=== PATIENT | male | born 1985 | race Caucasian/White ===

== ENCOUNTER 2019-02-06 19:42 | Emergency (ER) | payer MEDICAID, OTHER ==
[~2019-02-06] VITALS: Ht 175.2 cm; Wt 107.3 kg
--- NOTE | 2019-02-06 20:22 | ED Cough/URI ---
General Chief Complaint: Cough/Cold/Flu Symptoms Stated Complaint: SINUS INFECTION/FEVER Nursing Triage Note: Patient states that he has not been feeling well for approximately 1 month. Patient states that he has had intermittent fever, cough, congestion and nausea. Patient recently develped diarrhea in the last 24 hours. Patient states that he has been coughing up clear thick mucous. Nasal drainage has alternated between yellow and clear. Patient has also had intermittent joint pain. Sepsis Screen: Possible Severe Sepsis Risk Source: patient Exam Limitations: no limitations History of Present Illness Date Seen by Provider: Feb 06, 2019 Time Seen by Provider: 20:03 Initial Comments Patient presents ER by private conveyance with chief complaint of one month nasal congestion, sinus pressure pain and subjective fever starting last couple days. He's been using Vicks with minimal relief. He's loss since of smell and taste. He does not have a history of frequent sinus infections. Does smoke about half pack cigarettes per day but does not chew her DIP. He does not have a history of asthma or COPD. He's had an occasional nonproductive cough. He has not had any Tylenol or ibuprofen today. He is not using medications nor follow with a doctor for any reason. Allergies and Home Medications Allergies Coded Allergies: No Known Drug Allergies (Unverified , 02/06/19) Home Medications Amoxicillin/Potassium Clav 1 Each Tablet, 1 EACH PO BID Prescribed by: DUNCAN HUANG on 02/06/192022 Benzonatate 100 Mg Capsule, 100 MG PO Q6H PRN for COUGH Prescribed by: DUNCAN HUANG on 02/06/192022 Patient Home Medication List Home Medication List Reviewed: Yes Review of Systems Review of Systems Constitutional: chills; No diaphoresis; fever, malaise EENTM: No ear discharge, No ear pain Respiratory: cough; No phlegm, No short of breath, No wheezing Cardiovascular: No chest pain, No edema Gastrointestinal: No abdominal pain, No constipation, No diarrhea, No nausea, No vomiting Genitourinary: No discharge, No dysuria Past Ngavluc-Lqmcth-Ohcmwn Hx Patient Social History Alcohol Use: Regular Use Alcohol Beverage of Choice: Whiskey Recreational Drug Use: No Smoking Status: Current Everyday Smoker Type Used: Cigarettes Recent Foreign Travel: No Contact w/Someone Who Travel: No Recent Infectious Disease Expo: No Physical Abuse: No Sexual Abuse: No Mistreated: No Fear: No Seasonal Allergies Seasonal Allergies: No Past Medical History Surgeries: Yes (Dental) Respiratory: No Cardiac: No Neurological: No Genitourinary: No Gastrointestinal: No Musculoskeletal: No Endocrine: No HEENT: No Cancer: No Psychosocial: No Integumentary: No Physical Exam Vital Signs - First Documented 02/06/19 02/06/19 19:49 20:02 Temp 37.2 Pulse 107 Resp 18 B/P (MAP) 145/83 (103) Pulse Ox 97 O2 Delivery Room Air Capillary Refill : Less Than 3 Seconds Height: '" Weight: lbs. oz. kg; 34.00 BMI Method: General Appearance: WD/WN, mild distress Eyes: Bilateral Eye Normal Inspection, Bilateral Eye PERRL, Bilateral Eye EOMI HEENT: PERRL/EOMI; No TMs normal (bilateral mucoid effusion without erythema, injection, bulging or loss of tympanic membrane landmarks); pharynx normal, other (maxillary sinus bilateral tenderness to palpation. Nasal mucosa congestion mild erythema with small amount of purulent discharge) Neck: non-tender, full range of motion, supple, normal inspection, lymphadenopathy (R), lymphadenopathy (L) (bilateral anterior cervical lymphadenopathy, shoddy less than one centimeters each) Respiratory: lungs clear, normal breath sounds, no respiratory distress, no accessory muscle use Cardiovascular: normal peripheral pulses, regular rate, rhythm Neurologic/Psychiatric: alert, normal mood/affect, oriented x 3 Progress/Results/Core Measures Suspected Sepsis Recent Fever Within 48 Hours: Yes Infection Criteria Present: Suspected New Infection New/Unexplained Altered Menta: No Sepsis Screen: Possible Severe Sepsis Risk SIRS Temperature: Pulse: 107 Respiratory Rate: 18 Blood Pressure 145 /83 Mean: 103 Results/Orders Micro Results Microbiology 02/06/19 Influenza Types A,B Antigen (AHL) - Final, Complete My Orders Orders - DUNCAN HUANG Influenza A And B Antigens (02/06/19 19:58) Vital Signs/I&O 02/06/19 02/06/19 19:49 20:02 Temp 37.2 Pulse 107 Resp 18 B/P (MAP) 145/83 (103) Pulse Ox 97 O2 Delivery Room Air Room Air Capillary Refill : Less Than 3 Seconds Blood Pressure Mean: 103 POS Progress Note : Time: 20:19 Progress Note Influenza swab obtained. He does have tenderness to palpation over the maxillary sinuses. Plan to put him on Augmentin for 10 days and encouraged appropriate hygiene. Departure Impression Primary Impression: Maxillary sinusitis, acute Qualified Codes: J01.00 - Acute maxillary sinusitis, unspecified Additional Impression: Mucoid otitis media with effusion Qualified Codes: H65.93 - Unspecified nonsuppurative otitis media, bilateral Disposition: 01 HOME, SELF-CARE Condition: Stable Departure-Patient Inst. Decision time for Depature: 20:25 Referrals: NO,LOCAL PHYSICIAN (PCP/Family) Primary Care Physician Patient Instructions: Serous Otitis Media, Sinusitis, Adult (DC) Add. Discharge Instructions: Drink lots of fluids. Tylenol and/or ibuprofen as necessary for headache or pain. Nasal saline rinses several times a day. Augmentin 1 tablet with food twice a day for the next 10 days. Take it to completion as sinusitis is often very difficult to completely eradicate. Vapor rubs such as Vicks or Mentholatum. Humidifiers, hot steamy showers or baths, hot tea with honey or lemon. Tessalon Perles 1 capsule every 6 hours as needed for cough. Will not cause drowsiness. All discharge instructions reviewed with patient and/or family. Voiced understanding. Scripts Benzonatate (Tessalon Perle) 100 Mg Capsule 100 MG PO Q6H PRN for COUGH, #30 CAP 0 Refills Prov: DUNCAN HUANG 02/06/19 Amoxicillin/Potassium Clav (Augmentin 875-125 Tablet) 1 Each Tablet 1 EACH PO BID for 10 Days, #20 TAB 0 Refills Prov: DUNCAN HUANG 02/06/19 DUNCAN HUANG Feb 06, 2019 20:22 POS
[2019-02-06] MEDS ORDERED: BENZ-13 PO (20:23)
[2019-02-06] MEDS ORDERED: AMOX-358 PO (20:23)
[2019-02-06 20:35] VITALS: BP 145/83
== END 2019-02-06 20:35 | disposition home or self-care (01) ==
LOC: ER FS 19:46
DX: J01.00 Acute maxillary sinusitis, unspecified (principal); H65.93 Unspecified nonsuppurative otitis media, bilateral; F17.210 Nicotine dependence, cigarettes, uncomplicated
CPT/HCPCS: 87804